=== PATIENT | male | born 1970 | race Asian ===

== ENCOUNTER 2020-05-04 11:09 | Outpatient (CLI) | payer OTHER | END 2020-05-04 19:08 | disposition home or self-care (01) | LOC: RAD 11:09 | PROVIDERS: ATTEND Internal Medicine | DX: F99 Mental disorder, not otherwise specified (principal); M19.90 Unspecified osteoarthritis, unspecified site; J45.909 Unspecified asthma, uncomplicated; F81.9 Developmental disorder of scholastic skills, unspecified ==